=== PATIENT | male | born 1940 | race Two or more races ===

== ENCOUNTER 2020-06-20 11:12 | Inpatient (IN) | payer OTHER ==
[~2020-06-20] VITALS: Ht 167.6 cm; Wt 72.6 kg
[~2020-06-20 11:12] MED LIST: ASA81 MG PO; ASPIRIN PO; CAFFEINE PO; CENTRUM SILVER1 TAB PO; IBUPROFEN800 MG PO; MICARDIS40 MG PO; ORPH100T PO; ORPHENADRINE PO
[2020-06-20] MEDS ORDERED: TIZANIDINE (11:40)
[2020-06-20] MEDS ORDERED: SERTRALINE20 MG/1 ML (11:41)
[2020-06-20] MEDS ORDERED: KAPVAY0.1 MG (11:41)
[2020-06-20] MEDS ORDERED: COZAAR50 MG (11:41)
[2020-06-20] MEDS ORDERED: CARBIDOPA-LEVO1 EAC5 (11:42)
[2020-06-26] MEDS ORDERED: ZANAFLEX4 MG (14:06)
== END 2020-06-30 18:40 | disposition home health service (06) | DRG 328 ==
LOC: ER 11:12 → MEDI 16:46 → SEC-K 16:46 → MEDI 17:45
PROVIDERS: Surgery; ADMIT Internal Medicine; ATTEND Internal Medicine
PROC: 0DH67UZ Insertion of Feeding Device into Stomach, Via Natural or Artificial Opening (ICD-10-PCS; 2020-06-20)
PROC: 3E0G76Z Introduction of Nutritional Substance into Upper GI, Via Natural or Artificial Opening (ICD-10-PCS; 2020-06-20)
PROC: 0T9B70Z Drainage of Bladder with Drainage Device, Via Natural or Artificial Opening (ICD-10-PCS; 2020-06-20)
PROC: 3E0G76Z Introduction of Nutritional Substance into Upper GI, Via Natural or Artificial Opening (ICD-10-PCS; 2020-06-28)
PROC: 0DH60UZ Insertion of Feeding Device into Stomach, Open Approach (ICD-10-PCS; principal; 2020-06-28 14:45)
DX: R13.19 Other dysphagia (principal); I10 Essential (primary) hypertension; G20 Parkinson's disease; G31.85 Corticobasal degeneration; R53.81 Other malaise; R31.29 Other microscopic hematuria; Z20.828 Contact with and (suspected) exposure to other viral communicable diseases; Z74.01 Bed confinement status